=== PATIENT | male | born 1970 | race American Indian/Alaskan Native ===

== ENCOUNTER 2017-09-29 22:30 | Emergency (ER) | payer OTHER, BC ==
[2017-09-29 22:48] VITALS: BP 129/79
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
--- NOTE | 2017-09-30 00:02 | XRay Report ---
FINAL REPORT EXAM: XR Right Knee CLINICAL INDICATIONS: RT KNEE PAIN FINDINGS: AP and lateral views of the right knee were acquired and demonstrate no fracture or malalignment of the right knee. There is a small knee joint effusion. IMPRESSION: NO FRACTURE IS SEEN IN THE RIGHT KNEE
--- NOTE | 2017-09-30 00:02 | XRay Report ---
FINAL REPORT EXAM: XR C-Spine CLINICAL INDICATIONS: NECK PAIN FINDINGS: AP, lateral and open-mouth views of the cervical spine were acquired and demonstrate no fracture or malalignment of the cervical spine. The prevertebral soft tissues are within normal limits. The intervertebral disc space heights appear preserved. IMPRESSION: NO FRACTURE OR MALALIGNMENT OF THE CERVICAL SPINE
[2017-09-30] MEDS ORDERED: NORCO 5/325 PO ONE (00:03)
--- NOTE | 2017-09-30 00:03 | XRay Report ---
FINAL REPORT EXAM: XR CXR CLINICAL INDICATIONS: CP FINDINGS: Frontal and lateral views the chest were acquired and demonstrate that the heart is normal in size. The lungs appear clear. The pleura and mediastinum are within normal limits. IMPRESSION: NO ACTIVE DISEASE IN THE CHEST
== END 2017-09-30 00:17 | disposition home or self-care (01) ==
LOC: ED 22:30
DX: R07.89 Other chest pain (principal); M25.561 Pain in right knee; M54.2 Cervicalgia; V49.49XA Driver injured in collision with other motor vehicles in traffic accident, initial encounter; Y93.89 Activity, other specified; Y99.8 Other external cause status; Y92.410 Unspecified street and highway as the place of occurrence of the external cause
CPT/HCPCS: 71046; 72040; 93005; 93010; 99284